=== PATIENT | male | born 1960 | race Caucasian/White ===

== ENCOUNTER 2016-10-29 13:47 | Observation (INO) | payer OTHER ==
--- NOTE | 2016-10-29 14:14 | CPEKG ---
Heart Rate: 67 RR Interval: 896 P-R Interval: 132 QRSD Interval: 98 QT Interval: 420 QTC Interval: 444 P [place]: 46 QRS [place]: 33 T Wave [place]: 66 EKG Severity - ABNORMAL ECG - EKG Impression: SINUS RHYTHM EKG Impression: PROBABLE LEFT VENTRICULAR HYPERTROPHY Electronically Signed By: Jeremy Singer 29-Oct-2016 16:08:55
--- NOTE | 2016-10-29 14:16 | EDPHY ---
H & P Time Seen by Provider: 10/29/16 14:09 HPI/ROS: Chief complaint. Chest pain HPI. 56-year-old male presents with 2-3 week history of chest pain that is now worse. He had had low-grade chest tightness off and on for the past 2 weeks. Over the weekend the patient height 214 hours and had significant exacerbation of chest tightness radiating to both arms. He took naps during the hike and felt much better after the rest however his chest discomfort came back again as he started hiking up. He did feel that he had unusual shortness of breath. He has had no fever cough. No unusual leg pain or swelling. No symptoms of chest tightness prior to the last 2-3 weeks. No aspirin in the last 24 hours. Patient continues to have mild symptoms though they are improved ROS Constitutional. no fever/chills, no weakness Eyes. no problems with vision ENT. no sore throat, no nasal drainage Cardiovascular. Chest pressure Respiratory. Shortness of breath without cough Abdominal. no abdominal pain, no nausea/vomiting, no diarrhea . no problems urinating MS. no calf pain/swelling, no neck/back pain, no joint pain Skin. no rash Lymph. no swollen glands Neuro. no headache, no dizziness, no difficulty walking or with speech Past Medical/Surgical History: Dyslipidemia Family history mom had some type of heart issues Social History: Single, nonsmoker, no alcohol Smoking Status: Former smoker Physical Exam: General Appearance: Alert pleasant well-developed male mild distress vital signs are stable Eyes: Pupils equal and round no pallor or injection. ENT, Mouth: Mucous membranes are moist. Respiratory: There are no retractions, lungs are clear to auscultation. Cardiovascular: Regular rate and rhythm. Gastrointestinal: Abdomen is soft and nontender, no masses, bowel sounds normal. Neurological: Awake and alert, sensory and motor exams grossly normal. Skin: Warm and dry, no rashes. Musculoskeletal: Neck is supple nontender. Extremities symmetrical, full range of motion. Psychiatric: Patient is oriented X 3, there is no agitation. Constitutional: Initial Vital Signs Temperature (C) 36.8 C 10/29/16 13:52 Heart Rate 64 10/29/16 13:52 Respiratory Rate 14 10/29/16 13:52 Blood Pressure 142/84 H 10/29/16 13:52 O2 Sat (%) 98 10/29/16 13:52 O2 Delivery Mode Room Air Allergies/Adverse Reactions: No Known Allergies Allergy (Unverified 04/24/10 14:01) Home Medications: Medication Instructions Recorded Simvastatin 10 mg PO HS 04/24/10 Herbals/Supplements -Info Only 1 ea PO DAILY 10/29/16 Multivitamins [Multivitamin (*)] 1 each PO DAILY 10/29/16 Medical Decision Making - Diagnostics EKG Interpretation: EKG interpreted by me shows normal sinus rhythm with normal interval and axis. QRS is normal other than LVH by voltage. No significant ST elevation or depression. No arrhythmia. Rate is 67 Imaging Results: Imaging Impressions Chest X-Ray 10/29/16 14:32 Impression: Negative portable chest. Procedures: IV normal saline, monitor, aspirin ED Course/Re-evaluation: I reviewed the patient's echo cardiogram report that was faxed to us. It shows left ventricular wall abnormality. I consulted and discussed the case with Dr. Lai, cardiology, who sees the patient in the emergency department and decided to take the patient to the label printing machinist. I consulted and discussed case with Dr. stephen, hospitalist, who will care for the patient in the hospital and accepts the admission. I have re-evaluated the patient several times in the emergency department he remained stable. The patient and I discussed laboratory evaluation imaging studies, EKG findings. We discussed treatment plan including recommendation for admission. He expresses understanding and agreement Differential Diagnosis: Patient has an elevated troponin and has been having exertional chest discomfort over the past 2-3 weeks. He has a positive troponin. However he has a normal EKG indicating a non STEMI. Echo cardiogram today shows abnormal ventricular wall motion indicative of a cardiac event. - Data Points Laboratory Results: Laboratory Results 10/29/16 14:25 10/29/16 14:25 10/29/16 10/29/16 10/29/16 14:25 14:25 14:25 WBC 7.41 10^3/uL 10^3/uL (3.80-9.50) RBC 4.75 10^6/uL 10^6/uL (4.40-6.38) Hgb 15.4 g/dL g/dL (13.7-17.5) Hct 43.4 % % (40.0-51.0) MCV 91.4 fL fL (81.5-99.8) MCH 32.4 pg pg (27.9-34.1) MCHC 35.5 g/dL g/dL (32.4-36.7) RDW 12.9 % % (11.5-15.2) Plt Count 164 10^3/uL 10^3/uL (150-400) MPV 9.6 fL fL (8.7-11.7) Neut % (Auto) 62.8 % % (39.3-74.2) Lymph % (Auto) 28.3 % % (15.0-45.0) [place] % (Auto) 5.9 % % (4.5-13.0) Eos % (Auto) 2.2 % % (0.6-7.6) Baso % (Auto) 0.4 % % (0.3-1.7) Nucleat RBC Rel Count 0.0 % % (0.0-0.2) Absolute Neuts (auto) 4.65 10^3/uL 10^3/uL (1.70-6.50) Absolute Lymphs (auto) 2.10 10^3/uL 10^3/uL (1.00-3.00) Absolute Monos (auto) 0.44 10^3/uL 10^3/uL (0.30-0.80) Absolute Eos (auto) 0.16 10^3/uL 10^3/uL (0.03-0.40) Absolute Basos (auto) 0.03 10^3/uL 10^3/uL (0.02-0.10) Absolute Nucleated RBC 0.00 10^3/uL 10^3/uL (0-0.01) Immature Gran % 0.4 % % (0.0-1.1) Immature Gran # 0.03 10^3/uL 10^3/uL (0.00-0.10) PT 13.0 SEC SEC (12.0-15.0) INR 0.99 (0.83-1.16) APTT 27.9 SEC SEC (23.0-38.0) Sodium 142 mEq/L mEq/L (134-144) Potassium 3.8 mEq/L mEq/L (3.5-5.2) Chloride 108 mEq/L mEq/L (97-110) Carbon Dioxide 20 mEq/l L mEq/l (22-31) Anion Gap 14 mEq/L mEq/L (8-16) BUN 14 mg/dL mg/dL (7-23) Creatinine 0.8 mg/dL mg/dL (0.7-1.3) Estimated GFR > 60 Glucose 84 mg/dL mg/dL (70-100) Calcium 9.7 mg/dL mg/dL (8.5-10.4) Troponin I 0.098 ng/mL H ng/mL (0-0.034) NT-Pro-B Natriuret Pep 433 pg/mL H pg/mL (0-125) Medications Given: Discontinued Medications Aspirin (Aspirin) 324 mg PO EDNOW ONE Stop: 10/29/16 14:33 Last Admin: 10/29/16 14:33 Dose: 324 mg Sodium Chloride (Ns) 1,000 mls @ 0 mls/hr IV ONCE ONE; Wide Open PRN Reason: Protocol Stop: 10/29/16 14:33 Last Admin: 10/29/16 14:38 Dose: 1,000 mls Prasugrel (Effient) 60 mg PO ONCE ONE Stop: 10/29/16 18:17 Last Admin: 10/29/16 18:44 Dose: Not Given Departure - Departure Disposition: [facility] Inpatient Acute Clinical Impression: Myocardial infarction (lateral wall) Condition: Fair
[2016-10-29] MEDS ORDERED: ASPIRIN 81 MG CHEWABLE TAB ONE (14:31)
[2016-10-29] MEDS ORDERED: ASPIRIN 81 MG CHEWABLE TAB PO ONE (14:32)
[2016-10-29] MEDS ORDERED: NS 1,000 ML IV ONE (14:32)
[2016-10-29 14:44] LABS: % IMMATURE GRANULYOCYTES 0.4 % (0.0-1.1); ABSOLUTE IMMATURE GRANULOCYTES 0.03 10^3/uL (0.00-0.10); ADD DIFF? NO; ADD MORPH? NO; ADD SCAN? NO; ATYPICAL LYMPHOCYTE FLAG 0 (0-99); FRAGMENT RBC FLAG 0 (0-99); HEMATOCRIT 43.4 % (40.0-51.0); HEMOGLOBIN 15.4 g/dL (13.7-17.5); LEFT SHIFT FLG 0 (0-99); LIPEMIA HEMOLYSIS FLAG 90 (0-99); MEAN CELL HEMOGLOBIN 32.4 pg (27.9-34.1); MEAN CELL HEMOGLOBIN CONCENTR. 35.5 g/dL (32.4-36.7); MEAN CELL VOLUME 91.4 fL (81.5-99.8); MEAN PLATELET VOLUME 9.6 fL (8.7-11.7); PLATELET CLUMPS FLAG 10 (0-99); PLATELET COUNT 164 10^3/uL (150-400); RED BLOOD CELL COUNT 4.75 10^6/uL (4.40-6.38); RED CELL DISTRIBUTION WIDTH 12.9 % (11.5-15.2)
[2016-10-29 14:53] LABS: APTT 27.9 SEC (23.0-38.0); INR 0.99 (0.83-1.16)
[2016-10-29 14:56] LABS: ANION GAP 14 mEq/L (8-16); CALCIUM 9.7 mg/dL (8.5-10.4); CARBON DIOXIDE 20 mEq/l (22-31); CHLORIDE 108 mEq/L (97-110); CREATININE 0.8 mg/dL (0.7-1.3); GLOMERULAR FILTRATION RATE > 60; GLUCOSE 84 mg/dL (70-100); POTASSIUM 3.8 mEq/L (3.5-5.2); SODIUM 142 mEq/L (134-144)
[2016-10-29 15:07] LABS: TROPONIN I 0.098 ng/mL (0-0.034)
[2016-10-29] MEDS ORDERED: ACETAMINOPHEN 325 MG TAB PO PRN (15:28)
[2016-10-29] MEDS ORDERED: ONDANSETRON 4 MG/2 ML VIAL IVP PRN (15:28)
[2016-10-29] MEDS ORDERED: ONDANSETRON DISINTEGRATING 4 MG TAB PO PRN (15:28)
[2016-10-29] MEDS ORDERED: IOPAMIDOL (ISOVUE-370) 150 ML BTL IV ONE ×2 (15:56→17:06)
[2016-10-29] MEDS ORDERED: MIDAZOLAM 2 MG/2 ML VIAL ONE ×3 (15:56→17:08)
[2016-10-29] MEDS ORDERED: fentaNYL 100 MCG/2 ML INJ ONE ×2 (15:56→16:41)
[2016-10-29] MEDS ORDERED: LIDOCAINE 1% 300 MG/30 ML SDV ONE (15:56)
[2016-10-29] MEDS ORDERED: VERAPAMIL 5 MG/2 ML VIAL ONE (16:34)
[2016-10-29] MEDS ORDERED: BIVALIRUDIN 250 MG/5 ML VIAL IV ONE (16:34)
[2016-10-29] MEDS ORDERED: HEPARIN 10,000 UNIT/10 ML MDV ONE (16:34)
--- NOTE | 2016-10-29 16:34 | PDGENHP ---
History and Physical - Chief Complaint Acute chest pain - History of Present Illness PCP: Dr. Pelayo HPI: 56-year-old male presents with acute chest pain characterized as a 3/10 chest discomfort located centrally and associated with bilateral upper extremity paresthesias, with onset of symptoms approximately 2-3 weeks ago but particular worsening over the past several days. Symptoms were exacerbated by [place] [id number] [place] mountains with his friends, somewhat alleviated by resting. Patient reports that he and his friends med up several days ago and drove up to approximately [address]1991 feet elevation. The patient began experiencing some nausea headache and lethargy which became particularly pronounced when he began hiking. It seemed to improve with rest and food. After the patient's hiking trip had resolved, continued to experience the central chest discomfort. He saw his primary care provider, underwent echocardiogram which demonstrated focal wall motion abnormalities, and was sent to the emergency department. History Information - Allergies/Home Medication List Allergies/Adverse Reactions: No Known Allergies Allergy (Unverified 04/24/10 14:01) Home Medications: Statins 04/24/10 [Last Taken Unknown] I have personally reviewed and updated: family history, medical history, social history, surgical history - Past Medical History hyperlipidemia - Surgical History Reports: no pertinent surgical hx - Family History Additional family history: Father with cardiac stents in his 70s - Social History Smoking Status: Former smoker Alcohol Use: Occasionally (no particularly heavy use over the past several days) Drug Use: None Additional social history: normally independent in ADLs, physically active at baseline Review of Systems ROS: 10pt was reviewed & negative except for what was stated in HPI & below Cardiac: Reports: chest pain Gastrointestinal: Reports: nausea Neurological: Reports: headache Physical Exam Temp Pulse Resp BP Pulse Ox 36.8 C 64 16 136/74 H 97 10/29/16 16:32 10/29/16 16:32 10/29/16 16:32 10/29/16 16:32 10/29/16 16:32 Constitutional: no apparent distress, appears nourished, not in pain Eyes: PERRL, anicteric sclera, EOMI Ears, Nose, Mouth, Throat: moist mucous membranes, hearing normal, ears appear normal, no oral mucosal ulcers Cardiovascular: regular rate and rhythym, no murmur, rub, or gallop, No edema Respiratory: no respiratory distress, no rales or rhonchi, clear to auscultation Gastrointestinal: normoactive bowel sounds, soft, non-tender abdomen, no palpable masses Genitourinary: no bladder fullness, no bladder tenderness Musculoskeletal: other ( tenderness to palpation over the bilateral pectoralis muscles, full range of motion of his bilateral shoulders without any pain elicited) Neurologic: AAOx3, No sensation intact bilaterally, No weakness Psychiatric: interacting appropriately, not anxious, not encephalopathic, thought process linear Lab Data & Imaging Review 10/29/16 14:25 10/29/16 14:25 WBC 7.41 10^3/uL (3.80-9.50) 10/29/16 14:25 RBC 4.75 10^6/uL (4.40-6.38) 10/29/16 14:25 Hgb 15.4 g/dL (13.7-17.5) 10/29/16 14:25 Hct 43.4 % (40.0-51.0) 10/29/16 14:25 MCV 91.4 fL (81.5-99.8) 10/29/16 14:25 MCH 32.4 pg (27.9-34.1) 10/29/16 14:25 MCHC 35.5 g/dL (32.4-36.7) 10/29/16 14:25 RDW 12.9 % (11.5-15.2) 10/29/16 14:25 Plt Count 164 10^3/uL (150-400) 10/29/16 14:25 MPV 9.6 fL (8.7-11.7) 10/29/16 14:25 Neut % (Auto) 62.8 % (39.3-74.2) 10/29/16 14:25 Lymph % (Auto) 28.3 % (15.0-45.0) 10/29/16 14:25 [place] % (Auto) 5.9 % (4.5-13.0) 10/29/16 14:25 Eos % (Auto) 2.2 % (0.6-7.6) 10/29/16 14:25 Baso % (Auto) 0.4 % (0.3-1.7) 10/29/16 14:25 Nucleat RBC Rel Count 0.0 % (0.0-0.2) 10/29/16 14:25 Absolute Neuts (auto) 4.65 10^3/uL (1.70-6.50) 10/29/16 14:25 Absolute Lymphs (auto) 2.10 10^3/uL (1.00-3.00) 10/29/16 14:25 Absolute Monos (auto) 0.44 10^3/uL (0.30-0.80) 10/29/16 14:25 Absolute Eos (auto) 0.16 10^3/uL (0.03-0.40) 10/29/16 14:25 Absolute Basos (auto) 0.03 10^3/uL (0.02-0.10) 10/29/16 14:25 Absolute Nucleated RBC 0.00 10^3/uL (0-0.01) 10/29/16 14:25 Immature Gran % 0.4 % (0.0-1.1) 10/29/16 14:25 Immature Gran # 0.03 10^3/uL (0.00-0.10) 10/29/16 14:25 PT 13.0 SEC (12.0-15.0) 10/29/16 14:25 INR 0.99 (0.83-1.16) 10/29/16 14:25 APTT 27.9 SEC (23.0-38.0) 10/29/16 14:25 Sodium 142 mEq/L (134-144) 10/29/16 14:25 Potassium 3.8 mEq/L (3.5-5.2) 10/29/16 14:25 Chloride 108 mEq/L (97-110) 10/29/16 14:25 Carbon Dioxide 20 mEq/l (22-31) L 10/29/16 14:25 Anion Gap 14 mEq/L (8-16) 10/29/16 14:25 BUN 14 mg/dL (7-23) 10/29/16 14:25 Creatinine 0.8 mg/dL (0.7-1.3) 10/29/16 14:25 Estimated GFR > 60 10/29/16 14:25 Glucose 84 mg/dL (70-100) 10/29/16 14:25 Calcium 9.7 mg/dL (8.5-10.4) 10/29/16 14:25 Troponin I 0.098 ng/mL (0-0.034) H 10/29/16 14:25 NT-Pro-B Natriuret Pep 433 pg/mL (0-125) H 10/29/16 14:25 Visualized and Interpreted Chest x-ray results: Yes Chest X-Ray results: no infiltrate Visualized and Interpreted EKG results: Yes EKG Interpretation: Positive for: other ( normal sinus rhythm without any ST elevations or depressions, LVH) Assessment & Plan Assessment: 56-year-old male presents with acute chest pain concerning for stable angina versus acute coronary syndrome Plan: 1. Chest pain. Acute, new problem this provider, further workup indicated. Patient is high risk, high likelihood of obstructive coronary disease with positive troponin, focal wall motion abnormalities on echocardiogram (Outside records reviewed, 10/29/2016 echocardiogram performed at [facility]) in inferolateral segment, and a concerning story for stable angina. - discussed with Dr. Lai, he recommends cardiac catheterization given the patient has positive troponin and high likelihood of obstructive coronary disease -will get lipid panel, hemoglobin A1c -further medication recommendations to be determined after cardiac catheterization - discussed with Dr. Jeremy Singer in the emergency department, he has reported to me that the patient has received full-dose aspirin Diet. NPO, cardiac diet thereafter Prophylaxis. Low risk, SCDs Code. Full Disposition. Anticipated discharge 10/30/2016, pending further workup and stabilization of conditions outlined above.
--- NOTE | 2016-10-29 16:42 | PDDXCAT ---
Diagnostic Cath Note - . Date: 10/29/16 Seafood Fisherman: Ming Intervention: *Procedure 1. selective coronary angiography 2. left heart catheterization Indication: New and unstable angina, CCS Class III Access: Right radial *Materials Left Heart Cath size: 6F Left Heart Cath materials: JR4.0, JL3.5, pigtail, 3.5 mm x 16 Synergy drug eluting stent, 3.0 mm x 12.0 mm [place] Emerge Balloon, CLS3.5 *Findings- selective coronary angiography LM: The Left Main is ~6 mm in size and it bifurcates into a LAD and circumflex system. There is no evidence of flow limiting disease LAD: The LAD is ~4 mm in size. There is a 90% stenosis of the septal branch with CLOTILDE III flow. The LAD proper has a 90% stenosis in the proximal vessel with 40% stenosis distal to the second diagonal takeoff. A 3.0 mm x 12.0 mm Emerge balloon was used and a 3.0 mm x 16.0 mm Synergy stent was implanted in the LAD. There is a residual stenosis of 0% with CLOTILDE III flow throughout. LCX: The LCX is ~4 mm in size and there is a 99% obstruction of the left circumflex. A 3.50 mm x 16.0 mm Synergy drug eluting stent was implanted in the mid circumflex. There is a 5% residual stenosis with CLOTILDE III flow. RCA: The RCA is ~3.5 mm in size and is dominant. There is a 30% obstruction in the mid RCA and CLOTILDE III flow throughout. *Findings- left heart catheterization EDP: 28 mmHg AO: 120/85/102 mmHg LVEF: 50% LVG: Distal inferolateral and distal anterior wall hypokinesis noted on the LVG. *Summary Complications: None Estimated Blood Loss: <50 ml Closure Method: Assessment/Conclusion: 1. There is severe kashia vessel coronary artery disease with severe obstructive disease of the LCX and LAD and septal branches as noted above. No flow limiting obstruciton of lad or circ post stenting. 2. The patient will require DAPT with ASA and Effient for at least a year following stent implantation. 3. The patient should not have elective surgery of any kind for the first six months and any decision to stop DAPT should involve the providers at [facility] unless the patient is actively bleeding. 4. The patient should be teated to achieve an LDL and Non-HDL <100 mg/dL.
[2016-10-29] MEDS ORDERED: NITROGLYCERIN 1,500 MCG/15 ML VIAL MISC ONE (17:16)
[2016-10-29] MEDS ORDERED: PRASUGREL HCL 10 MG TAB ONE (17:37)
--- NOTE | 2016-10-29 18:06 | CPEKG ---
Heart Rate: 61 RR Interval: 984 P-R Interval: 152 QRSD Interval: 96 QT Interval: 456 QTC Interval: 460 P [place]: 52 QRS [place]: 50 T Wave [place]: 75 EKG Severity - BORDERLINE ECG - EKG Impression: SINUS RHYTHM EKG Impression: BORDERLINE T ABNORMALITIES, ANT-LAT LEADS Electronically Signed By: Gerardo Cole 30-Oct-2016 14:00:45
[2016-10-29] MEDS ORDERED: LORazepam 2 MG/ML INJ IVP PRN (18:16)
[2016-10-29] MEDS ORDERED: ATROPINE SULFATE 1 MG/10 ML SYR IVP PRN (18:16)
[2016-10-29] MEDS ORDERED: HYDROCODONE/APAP 5/325 TAB PO PRN (18:16)
[2016-10-29] MEDS ORDERED: OXYCODONE/APAP 5/325 TAB PO PRN (18:16)
[2016-10-29] MEDS ORDERED: TEMAZEPAM 15 MG CAP PO PRN (18:16)
[2016-10-29] MEDS ORDERED: PRASUGREL HCL 10 MG TAB PO ONE (18:16)
[2016-10-29] MEDS ORDERED: NITROGLYCERIN 0.4 MG BTL SL PRN (18:16)
[2016-10-29] MEDS ORDERED: NS 1,000 ML IV SCH (18:30)
[2016-10-30 04:45] LABS: % IMMATURE GRANULYOCYTES 0.4 % (0.0-1.1); ABSOLUTE IMMATURE GRANULOCYTES 0.03 10^3/uL (0.00-0.10); ADD DIFF? NO; ADD MORPH? NO; ADD SCAN? NO; ATYPICAL LYMPHOCYTE FLAG 10 (0-99); FRAGMENT RBC FLAG 10 (0-99); HEMATOCRIT 41.4 % (40.0-51.0); LEFT SHIFT FLG 0 (0-99); LIPEMIA HEMOLYSIS FLAG 90 (0-99); MEAN CELL HEMOGLOBIN 31.7 pg (27.9-34.1); MEAN CELL HEMOGLOBIN CONCENTR. 33.8 g/dL (32.4-36.7); MEAN CELL VOLUME 93.7 fL (81.5-99.8); MEAN PLATELET VOLUME 9.8 fL (8.7-11.7); PLATELET CLUMPS FLAG 0 (0-99); PLATELET COUNT 180 10^3/uL (150-400); RED BLOOD CELL COUNT 4.42 10^6/uL (4.40-6.38); RED CELL DISTRIBUTION WIDTH 12.9 % (11.5-15.2)
[2016-10-30 04:51] LABS: ALANINE AMINOTRANSFERASE 45 IU/L (21-72); ALBUMIN 3.6 g/dL (3.5-5.0); ALKALINE PHOSPHATASE 55 IU/L (38-126); ANION GAP 8 mEq/L (8-16); ASPARTATE AMINOTRANSFERASE 28 IU/L (17-59); BILIRUBIN,TOTAL 0.7 mg/dL (0.1-1.4); CALCIUM 9.2 mg/dL (8.5-10.4); CARBON DIOXIDE 22 mEq/l (22-31); CHLORIDE 112 mEq/L (97-110); CHOLESTEROL 188 mg/dL (140-220); CHOLESTEROL/HDL RATIO 4.37 RATIO (1.00-4.97); CREATININE 0.9 mg/dL (0.7-1.3); GLOMERULAR FILTRATION RATE > 60; GLUCOSE 87 mg/dL (70-100); HIGH DENSITY LIPOPROTEIN 43 mg/dL (40-65); LACTATE DEHYDROGENASE 423 IU/L (313-618); LDL/HDL RATIO 2.77 RATIO (1.00-3.64); LOW DENSITY LIPOPROTEIN 119 mg/dL (80-100); MAGNESIUM 2.1 mg/dL (1.6-2.3); NON-HIGH DENSITY LIPOPROTEIN 145 mg/dL (90-129); POTASSIUM 4.9 mEq/L (3.5-5.2); SODIUM 142 mEq/L (134-144); TOTAL PROTEIN 6.2 g/dL (6.3-8.2); TRIGLYCERIDE 131 mg/dL (40-150); VERY LOW DENSITY LIPOPROTEINS 26 mg/dL (8-25)
--- NOTE | 2016-10-30 08:41 | CPEKG ---
Heart Rate: 68 RR Interval: 882 P-R Interval: 136 QRSD Interval: 90 QT Interval: 388 QTC Interval: 413 P [place]: 60 QRS [place]: 68 T Wave [place]: 78 EKG Severity - NORMAL ECG - EKG Impression: SINUS RHYTHM Electronically Signed By: Gerardo Cole 30-Oct-2016 14:00:33
[2016-10-30] MEDS ORDERED: ASPIRIN EC 325 MG TAB PO SCH (09:00)
[2016-10-30] MEDS ORDERED: MULTIVITAMINS 1 EACH TAB PO SCH (09:00)
[2016-10-30] MEDS ORDERED: PRASUGREL HCL 10 MG TAB PO SCH (09:00)
[2016-10-30] MEDS ORDERED: Herbals/Supplements -Info Only PO SCH (09:00)
[2016-10-30 09:06] VITALS: BP 116/77; PULSE 76; RESP 18; TEMP 97.9; O2SAT 94
[2016-10-30 11:22] LABS: HEMOGLOBIN A1C 5.1 % (4.0-6.0)
[2016-10-30] MEDS ORDERED: PRAVASTATIN SODIUM 20 MG TAB PO SCH (21:00)
--- NOTE | 2016-10-30 22:22 | GDS ---
[f rep st] DISCHARGE SUMMARY ADMITTING DIAGNOSES: 1. Acute coronary syndrome. 2. Elevated troponins. 3. Decreased lateral wall motion by echo. DISCHARGE DIAGNOSES: 1. Cardiac angiogram revealing severe stenosis of the left anterior descending and left circumflex. 2. Drug-eluting stent placed to the left circumflex and left anterior descending with no complicati ons. 3. Diminished wall motion at 50%. COURSE HOSPITALIZATION: The patient was brought into the emergency room having chest pain and short ness of breath. His EKG was normal with no ischemic changes noted. His troponin was 0.098. He was taken emergently to the cardiac candlemaking laborer by Dr. Bear Lai. Cardiac angiography was done through right radial access point. Left main showed no evidence of flow-limiting disease. LAD showed 90% stenosis of the septal branch, 90% stenosis in the proximal vessel with 40% stenosis distal to the s econd diagonal takeoff. Synergy drug-eluting stent was placed in the LAD, residual stenosis of 0% w ith CLOTILDE-3 flow throughout. The left circumflex revealed a 99% obstruction of the left circumflex. Synergy drug-eluting stent was placed in the midcircumflex. There was 5% residual stenosis with TI LA-3 flow. RCA indicated 30% obstruction in the mid RCA with CLOTILDE-3 flow throughout. Left ventricu lar ejection fraction 50%. LVG distal inferolateral and distal anterior wall hypokinesis noted on t he LVG. There were no complications. MEDICATIONS: He will go home on: Rosuvastatin 20 mg daily, Effient 10 mg daily, lisinopril 2.5 mg daily, aspirin enteric-coated 325 mg daily. Nitroglycerin 0.4 mg sublingual once p.r.n., can repeat every 5 minutes x2 for chest pain. Tylenol 325 mg 1-2 tabs every 4 hours as needed for discomfort, not to exceed 3 g daily. ALLERGIES: He has no known allergies. EXAM: VITAL SIGNS: On day of discharge, blood pressure 116/77, heart rate 76 and regular. No arrh ythmias noted. Temperature 36.6 Celsius. HEART: EKG shows a normal sinus rhythm. Heart rate is r egular. No murmurs, rubs, gallops. LUNGS: Sounds are clear to auscultation. No wheezes, rales, o r rhonchi. Peripheral pulses are 2+ bilaterally. EXTREMITIES: Right wrist access site is intact w ith no bleeding, induration, or ecchymosis. He has good ulnar radial pulses. His hand and fingers have good sensation with good capillary refill. DISCHARGE PLAN: He will follow up in the clinic in 7-10 days. He will have his lipids, liver funct ion test, and CPK level checked in 6 weeks. Lab order will be sent to him. He is to have a carotid ultrasound prior to his visit in 1-[address] Lai and REBECCA Hull. He will have an echocardiogram in 6 weeks to evaluate his left ventricular function. He is to participate in cardiac rehab. Cardiac rehab will call to set up an appointment. His blood pressure has been low normal. Due to the soft blood pressure, no beta nima was started at this time. This will be readdressed at his first clinic appointment. The office will call him with his appointment times. At this time, he currently is stable for discharge. /[id number]/MODL
[2016-10-31] MEDS ORDERED: LISINOPRIL 2.5 MG TAB PO SCH (09:00)
[2016-10-31] MEDS ORDERED: ROSUVASTATIN CALCIUM 20 MG TAB PO SCH (09:00)
== END 2016-10-30 13:02 | disposition home or self-care (01) ==
LOC: F2W 18:39
PROVIDERS: ADMIT Internal Medicine; ATTEND Nurse Practitioner Adult Health
PROC: B2151ZZ Fluoroscopy of Left Heart using Low Osmolar Contrast (ICD-10-PCS; principal; 2016-10-29)
PROC: 4A023N7 Measurement of Cardiac Sampling and Pressure, Left Heart, Percutaneous Approach (ICD-10-PCS; principal; 2016-10-29)
PROC: B2111ZZ Fluoroscopy of Multiple Coronary Arteries using Low Osmolar Contrast (ICD-10-PCS; principal; 2016-10-29)
PROC: 027034Z Dilation of Coronary Artery, One Artery with Drug-eluting Intraluminal Device, Percutaneous Approach (ICD-10-PCS; principal; 2016-10-29)
DX: I25.110 Atherosclerotic heart disease of native coronary artery with unstable angina pectoris (principal); E78.5 Hyperlipidemia, unspecified; Z87.891 Personal history of nicotine dependence
CPT/HCPCS: 71010; 92928; 93005; 93458; C1725; C1769; C1887; G0378; C1874; C9600; J0583; J1644; J2250; J3010; Q9967